=== PATIENT | female | born 1960 | race Caucasian/White ===

== ENCOUNTER 2023-09-14 21:04 | Emergency (ER) | payer MEDICARE, MEDICAID ==
[2023-09-14 22:43] VITALS: BP 153/86; PULSE 87
== END 2023-09-15 00:20 | disposition home or self-care (01) ==
LOC: DL.ED 21:04
DX: M79.672 Pain in left foot (principal); K21.9 Gastro-esophageal reflux disease without esophagitis; F17.210 Nicotine dependence, cigarettes, uncomplicated; Z86.16 Personal history of COVID-19; Z90.49 Acquired absence of other specified parts of digestive tract; Z90.710 Acquired absence of both cervix and uterus; Z79.899 Other long term (current) drug therapy; Z88.8 Allergy status to other drugs, medicaments and biological substances; Z91.040 Latex allergy status; W19.XXXA Unspecified fall, initial encounter; Y92.009 Unspecified place in unspecified non-institutional (private) residence as the place of occurrence of the external cause
CPT/HCPCS: 73630-LT; 99283

== ENCOUNTER 2024-01-12 12:07 | Emergency (ER) | payer MEDICARE, MEDICAID ==
[2024-01-12] MEDS: Albuterol/Ipratropium 3.0-0.5 MG/3 ML Neb Soln NEB ONE (12:14)
[2024-01-12] MEDS: Dexamethasone 4 MG/ML SDV IVPUSH ONE (12:20)
[2024-01-12] MEDS: Magnesium Sulfate/Water Premix 2 GM in Premix Bag 1 BAG IV ONE ×2 (12:22→12:40)
[2024-01-12] MEDS: Albuterol/Ipratropium 3.0-0.5 MG/3 ML Neb Soln ONE (12:25)
[2024-01-12] MEDS: Dexamethasone 4 MG/ML SDV ONE (12:25)
[2024-01-12] MEDS: Magnesium Sulfate/Water Premix 50 ML ONE (12:26)
[2024-01-12] MEDS ORDERED: Sodium Chloride 0.9% 10 ML Syringe FLUSH PRN (12:29)
[2024-01-12 12:37] LABS: HEMATOCRIT 42.7 % (37.0-47.0); HEMOGLOBIN 14.3 g/dL (12.0-16.0); MEAN CORPUSCULAR HEMOGLOBIN 30.7 pg (27.0-34.0); MEAN CORPUSCULAR HGB CONC 33.5 g/dL (33.0-35.0); MEAN CORPUSCULAR VOLUME 91.6 fL (80-100); PLATELET COUNT,PLT 136 10^3/uL (150-450); RED BLOOD CELL COUNT 4.66 10^6/uL (4.2-5.4); WHITE BLOOD CELL COUNT,WBC 7.3 10^3/uL (5.0-10.0)
[2024-01-12] MEDS: Sodium Chloride 0.9% 1,000 ML IV ONE (12:49)
[2024-01-12 12:51] LABS: ALANINE AMINOTRANSFERASE,ALT 65 U/L (14-59); ALBUMIN 4.2 g/dL (3.4-5.0); ALKALINE PHOSPHATASE 106 U/L (46-116); ANION GAP 17.4 mEq/L (7-13); ASPARTATE AMNIOTRANSFERASE,AST 43 U/L (15-37); BILIRUBIN TOTAL 1.1 mg/dL (0.2-1.0); BLOOD UREA NITROGEN,BUN 10 mg/dL (7-18); BUN/CREATININE RATIO 10.6 (No establ ref range); CALCIUM 9.2 mg/dL (8.5-10.1); CARBON DIOXIDE,CO2 28 mmol/L (21-32); CHLORIDE,CL 101 mmol/L (98-107); CREATININE 0.94 mg/dL (0.55-1.02); GLUCOSE RANDOM 132 mg/dL (70-99); MAGNESIUM 1.7 mg/dL (1.8-2.4); POTASSIUM,K 3.4 mmol/L (3.5-5.1); PROTEIN TOTAL,TP 8.5 g/dL (6.4-8.2); SODIUM,NA 143 mmol/L (136-145)
[2024-01-12 12:53] LABS: C-REACTIVE PROTEIN < 0.50 ng/dL (<=0.50); ESTIMATED GFR 67 mL/min (>=60)
[2024-01-12 12:54] LABS: B-TYPE NATRIURETIC PEPTIDE,BNP 231 pg/ml (0-100)
[2024-01-12 12:55] VITALS: BP 191/110; PULSE 111
[2024-01-12 12:57] LABS: LACTIC ACID 5.3 mmol/L (0.4-2.0)
[2024-01-12 12:58] LABS: EOSINOPHILS PERCENT AUTO 0.5 % (1.0-3.0); LYMPHOCYTES PERCENT AUTO 23.2 % (20.5-50.1); MONOCYTES PERCENT AUTO 5.9 % (2-8); NEUTROPHILS PERCENT AUTO 70.3 % (42.2-75.2)
[2024-01-12 12:59] LABS: BASOPHILS PERCENT AUTO 0.1 % (0.0-1.0)
[2024-01-12 13:04] LABS: LYMPHOCYTES % ATYPICAL MANUAL 3 %; LYMPHOCYTES PERCENT MAN 16 % (20-50); MONOCYTES PERCENT MAN 8 % (2-8); SEG NEUTROPHILS PERCENT MAN 73 % (42-75)
[2024-01-12] MEDS: Albuterol 0.083% 2.5 MG/3 ML Neb Soln NEB ONE (13:15)
[2024-01-12] MEDS ORDERED: cefTRIAXone 2 GM Vial IVPUSH ONE (14:32)
== END 2024-01-12 14:44 | disposition home or self-care (01) ==
LOC: DL.ED 12:07
DX: J44.1 Chronic obstructive pulmonary disease with (acute) exacerbation (principal); J18.9 Pneumonia, unspecified organism; K21.9 Gastro-esophageal reflux disease without esophagitis; Z86.16 Personal history of COVID-19; Z90.49 Acquired absence of other specified parts of digestive tract; Z79.899 Other long term (current) drug therapy; Z91.040 Latex allergy status; Z88.8 Allergy status to other drugs, medicaments and biological substances
CPT/HCPCS: 36415; 71046; 80053; 83605; 83735; 83880; 85025; 86140; 87040; 87804; 93005; 94762; 96365; 96366; 96375; 99285; J1100; J3475; J7030; U0002; J7613-GY; J7620-GY

== ENCOUNTER 2024-04-01 15:29 | Emergency (ER) | payer MEDICARE, MEDICAID ==
[2024-04-01 15:45] VITALS: BP 183/81; PULSE 95
[2024-04-01] MEDS: Cefuroxime 250 MG Tab PO ONE (16:37)
[2024-04-01] MEDS: Take Home: predniSONE 20 MG, 4 Tab Pack PO ONE (16:38)
== END 2024-04-01 16:49 | disposition home or self-care (01) ==
LOC: DL.ED 15:29
DX: R06.02 Shortness of breath (principal); K21.9 Gastro-esophageal reflux disease without esophagitis; Z86.73 Personal history of transient ischemic attack (TIA), and cerebral infarction without residual deficits; Z86.16 Personal history of COVID-19; Z90.49 Acquired absence of other specified parts of digestive tract; Z90.710 Acquired absence of both cervix and uterus; Z87.891 Personal history of nicotine dependence; Z88.5 Allergy status to narcotic agent; Z88.8 Allergy status to other drugs, medicaments and biological substances; Z91.040 Latex allergy status; Z79.899 Other long term (current) drug therapy
CPT/HCPCS: 99284; A9270

== ENCOUNTER 2024-11-13 22:13 | Emergency (ER) | payer MEDICARE, MEDICAID ==
[2024-11-13] MEDS ORDERED: Sodium Chloride 0.9% 10 ML Syringe FLUSH PRN (22:38)
[2024-11-13] MEDS: Iopamidol 755 Mg/ML 100 ML Bottle IVPUSH ONE (22:43)
[2024-11-13 22:51] VITALS: BP 114/67; PULSE 85
[2024-11-13 22:59] LABS: BASOPHILS PERCENT AUTO 0.2 % (0.0-1.0); EOSINOPHILS PERCENT AUTO 1.7 % (1.0-3.0); LYMPHOCYTES PERCENT AUTO 34.3 % (20.5-50.1); MONOCYTES PERCENT AUTO 10.0 % (2-8); NEUTROPHILS PERCENT AUTO 53.8 % (42.2-75.2); PLATELET COUNT,PLT 132 10^3/uL (150-450); RED BLOOD CELL COUNT 4.06 10^6/uL (4.2-5.4); WHITE BLOOD CELL COUNT,WBC 4.6 10^3/uL (5.0-10.0)
[2024-11-13 23:17] LABS: B-TYPE NATRIURETIC PEPTIDE,BNP 112.0 pg/ml (0-100)
[2024-11-13 23:18] LABS: A/G RATIO 1.2; ALANINE AMINOTRANSFERASE,ALT 16.0 U/L (14-59); ASPARTATE AMNIOTRANSFERASE,AST 20.0 U/L (15-37); BILIRUBIN TOTAL 0.6 mg/dL (0.2-1.0); BLOOD UREA NITROGEN,BUN 7.0 mg/dL (7-18); CARBON DIOXIDE,CO2 29.0 mmol/L (21-32); CHLORIDE,CL 105.0 mmol/L (98-107); CREATININE 1.0 mg/dL (0.55-1.02); EST CRCL DRUG DOSING (CG) 54.54 mL/min; ETHANOL BLOOD MEDICAL 149.0 mg/dL (0); GLUCOSE RANDOM 96.0 mg/dL (70-99); PHOSPHORUS 2.8 mg/dL (2.6-4.7); POTASSIUM,K 4.4 mmol/L (3.5-5.1); PROTEIN TOTAL,TP 7.1 g/dL (6.4-8.2); SODIUM,NA 139.0 mmol/L (136-145)
[2024-11-13 23:23] LABS: ESTIMATED GFR 63.0 mL/min (>=60)
[2024-11-13 23:49] LABS: AMPHETAMINES,URINE NEGATIVE (NEGATIVE); BARBITURATES,URINE NEGATIVE (NEGATIVE); MDMA (ECSTASY), URINE NEGATIVE (NEGATIVE); METHAMPHETAMINES,URINE NEGATIVE (NEGATIVE); OPIATES,URINE NEGATIVE (NEGATIVE); OXYCODONE,URINE NEGATIVE (NEGATIVE); PHENCYCLIDINE,URINE NEGATIVE (NEGATIVE); TCA,URINE NEGATIVE (NEGATIVE)
[2024-11-14] MEDS ORDERED: Take Home: Ondansetron 4 MG Tab.DIS, 5 Tab Pack PO ONE (00:57)
== END 2024-11-14 01:12 | disposition home or self-care (01) ==
LOC: DL.ED 22:13
DX: F10.120 Alcohol abuse with intoxication, uncomplicated (principal); K21.9 Gastro-esophageal reflux disease without esophagitis; Z86.73 Personal history of transient ischemic attack (TIA), and cerebral infarction without residual deficits; Z86.16 Personal history of COVID-19; Z91.040 Latex allergy status; Z88.5 Allergy status to narcotic agent; Z88.8 Allergy status to other drugs, medicaments and biological substances; Z79.899 Other long term (current) drug therapy; Y90.6 Blood alcohol level of 120-199 mg/100 ml
CPT/HCPCS: 36415; 70450; 70496; 70498; 80053; 80305; 80307; 83735; 83880; 84100; 84484; 85025; 93005; 93010; 99283; 99284; Q9967